=== PATIENT | male | born 1995 | race Hispanic/Latino ===

== ENCOUNTER 2019-03-12 07:05 | Emergency (ER) | payer BC, OTHER ==
[2019-03-12] MEDS ORDERED: SODIUM CHLORIDE 0.9% 1000ML 2,000 ML IV ONE (07:43)
[2019-03-12] MEDS ORDERED: ONDANSETRON HCL 4 MG/2 ML VIAL ONE (07:44)
[2019-03-12] MEDS ORDERED: FAMOTIDINE/PF 20 MG/2 ML VIAL IV ONE (07:56)
[2019-03-12 08:00] LABS: BASOPHILS % (AUTO) 0.5 % (0.0-5.0); HEMATOCRIT 53.8 % (42-54); LYMPHOCYTES % (AUTO) 21.2 % (21.0-51.0); MEAN CORPUSCULAR HGB CONC 34.3 g/dL (32.0-36.0); MEAN CORPUSCULAR VOLUME 84.4 fL (79-99); MONOCYTES % (AUTO) 12.2 % (3.0-13.0); NEUTROPHILS % (AUTO) 65.1 % (40.0-77.0); NUCLEATED RED BLOOD CELLS 0.2 % (0.0-0.19); PLATELET COUNT (AUTO) 258 K/uL (130-400); RED BLOOD CELL COUNT(AUTO) 6.37 MIL/uL (4.50-6.20); RED CELL DISTRIBUTION WIDTH 13.5 % (11.0-15.5); WHITE BLOOD COUNT (AUTO) 6.5 K/uL (4.8-10.8)
[2019-03-12 08:07] LABS: CREATININE 1.2 mg/dL (0.5-1.5); POTASSIUM 3.7 mmol/L (3.5-5.1)
[2019-03-12 08:14] LABS: ALBUMIN 4.2 g/dL (3.5-5.0); BILIRUBIN,TOTAL 0.8 mg/dL (0.2-1.0); TOTAL PROTEIN, SERUM 8.4 g/dL (6.0-8.3)
== END 2019-03-12 10:59 | disposition home or self-care (01) ==
LOC: EDH 07:05
DX: R19.7 Diarrhea, unspecified (principal); R10.9 Unspecified abdominal pain
CPT/HCPCS: 36415; 80053; 83690; 85025; 96374; 96375; 99285; J2405; J3490; J7030